=== PATIENT | male | born 2000 | race Caucasian/White ===

== ENCOUNTER 2025-05-08 13:55 | Emergency (ER) | payer OTHER ==
[2025-05-08 14:19] LABS: Glucose,Whole Blood 108 mg/dL (70-110)
--- NOTE | 2025-05-08 14:24 | ED ---
Recheck HPI - General Chief Complaint: Recheck/Abnormal Lab/Rx Stated Complaint: Hypoglycemia Time Seen by Provider: 05/08/25 14:09 Source: patient, family, EMS, RN notes reviewed Mode of arrival: EMS Limitations: no limitations - History of Present Illness Initial Comments: This is a 24-year-old male with a history of type 1 diabetes not on an insulin pump presenting to the emergency department via EMS for concerns of hypoglycemia. Mother is at bedside and helps to provide history as well. Patient states that he went to bed at 5 AM this morning and mother states that she went to check on the patient at 12:30 PM and he was difficult to arouse. She checked his blood sugar that was in the 20s. She gave the patient frosting where he mildly woke up and EMS said that his sugars were in the 40s. Patient states that he last had a meal at about 2300 on 05/07/2025. Currently states that he is feeling nauseated. Denies chest pain, headaches, abdominal pain, difficulty in breathing. Has not received insulin today. - Related Data Home Medications Medication Instructions Recorded Confirmed Insulin Aspart [Insulin Aspart See Protocol SQ TID-W/MEALS 05/08/25 05/08/25 Flexpen] Insulin Glargine,Hum.rec.anlog 28 units SQ HS 05/08/25 05/08/25 [Lantus Solostar Pen] Allergies Allergy/AdvReac Type Severity Reaction Status Date / Time No Known Allergies Allergy Verified 05/08/25 15:13 Review of Systems ROS Statement: Those systems with pertinent positive or pertinent negative responses have been documented in the HPI. ROS Other: All systems not noted in ROS Statement are negative. Past Medical History Past Medical History: Diabetes Mellitus History of Any Multi-Drug Resistant Organisms: None Reported Past Surgical History: No Surgical Hx Reported Past Psychological History: No Psychological Hx Reported Smoking Status: Never smoker Past Alcohol Use History: Occasional Past Drug Use History: Marijuana General Exam Limitations: no limitations Neck exam: Present: normal inspection. Absent: tenderness, meningismus, lymphad enopathy Respiratory exam: Present: normal lung sounds bilaterally. Absent: respiratory distress, wheezes, rales, rhonchi, stridor Cardiovascular Exam: Present: regular rate, normal rhythm, normal heart sounds. Absent: systolic murmur, diastolic murmur, rubs, gallop, clicks GI/Abdominal exam: Present: soft, normal bowel sounds. Absent: distended, tenderness, guarding, rebound, rigid Extremities exam: Present: normal inspection, full ROM, normal capillary refill. Absent: tenderness, pedal edema, joint swelling, calf tenderness Back exam: Present: normal inspection Skin exam: Present: warm, dry, intact, normal color. Absent: rash Course Vital Signs 05/08/25 05/08/25 05/08/25 13:58 14:52 15:51 Temperature 97.7 F Pulse Rate 85 86 67 Respiratory 20 20 20 Rate Blood Pressure 137/87 137/86 116/72 O2 Sat by Pulse 99 99 96 Oximetry Medical Decision Making - Medical Decision Making Was pt. sent in by a medical professional or institution (, PA, SYSTEMS SECURITY CONSULTANT, urgent care, hospital, or [facility]...) When possible be specific @ -[No] Did you speak to anyone other than the patient for history (EMS, parent, family, police, friend...)? What history was obtained from this source @ -Mother states that she noticed the patient was not responding when she checked his blood sugar that was found to be in the 20s. Did you review nursing and triage notes (agree or disagree)? Why? @ -[I reviewed and agree with nursing and triage notes] Were old charts reviewed (outside hosp., previous admission, EMS record, old EKG, old radiological studies, urgent care reports/EKG's, [facility] records)? Report findings @ -[No old charts were reviewed] Differential Diagnosis (chest pain, altered mental status, abdominal pain women, abdominal pain men, vaginal bleeding, weakness, fever, dyspnea, syncope, headache, dizziness, GI bleed, back pain, seizure, CVA, palpatations, mental health, musculoskeletal)? @ -Differential Altered Mental Status: Hypoglycemia, DKA, hypercapnia, ETOH, overdose, CO poisoning, trauma, myxedema coma, HTN encephalopathy, infection, encephalitis, psychosis, intercranial hemorrhage, hepatic encephalopathy, meningitis, CVA, this is not meant to be an all-inclusive list EKG interpreted by me (3pts min.). @ -[As above] X-rays interpreted by me (1pt min.). @ -[None done] CT interpreted by me (1pt min.). @ -[None done] U/S interpreted by me (1pt. min.). @ -[None done] What testing was considered but not performed or refused? (CT, X-rays, U/S, labs)? Why? @ -[None] What meds were considered but not given or refused? Why? @ -[None] Did you discuss the management of the patient with other professionals (professionals i.e. , PA, SYSTEMS SECURITY CONSULTANT, lab, RT, psych nurse, social media intern, mud trucker, teacher, hospital chief financial officer, case coordinator)? Give summary @ -[No] Was smoking cessation discussed for >3mins.? @ -[No] Was critical care preformed (if so, how long)? @ -[No] Were there social determinants of health that impacted care today? How? (Homelessness, low income, unemployed, alcoholism, drug addiction, transpor tation, low edu. Level, literacy, decrease access to med. care, care home, rehab)? @ -[No] Was there de-escalation of care discussed even if they declined (Discuss DNR or withdrawal of care, Hospice)? DNR status @ -[No] What co-morbidities impacted this encounter? (DM, HTN, Smoking, COPD, CAD, Cancer, CVA, ARF, Chemo, Hep., AIDS, mental health diagnosis, sleep apnea, morbid obesity)? @ -[None] Was patient admitted / discharged? Hospital course, mention meds given and route, prescriptions, significant lab abnormalities, going to OR and other pertinent info. @ -24-year-old male presenting via EMS with hypoglycemia. On arrival patient's blood sugar is noted to be 108 at 2:08 PM. On my evaluation of the patient he is resting comfortably in the examination bed however he appears mildly pale. States that he is nauseated. Abdominal examination is unremarkable. Patient is ANO x 4. He is provided with apple juice. Patient's repeat blood glucose after juice and a sandwich is at 54. He is provided with a half amp of dextrose with a repeat sugar of 96. repat BG Of patient is stable for discharge and recommended that he continue to closely monitor his sugar at home and follow up with his primary care provider on Saturday for further evaluation. case discussed with my attending, Dr. Lamb Undiagnosed new problem with uncertain prognosis? @ -[No] Drug Therapy requiring intensive monitoring for toxicity (Heparin, Nitro, Insulin, Cardizem)? @ -[No] Were any procedures done? @ -[No] Diagnosis/symptom? @ -[default] Acute, or Chronic, or Acute on Chronic? @ -[default] Uncomplicated (without systemic symptoms) or Complicated (systemic symptoms)? @ -[default] Side effects of treatment? @ -[No] Exacerbation, Progression, or Severe Exacerbation? @ -[No] Poses a threat to life or bodily function? How? (Chest pain, [place], NH, pneumonia, PE, COPD, DKA, ARF, appy, cholecystitis, CVA, Diverticulitis, Homicidal, Suicidal, threat to staff... and all critical care pts) @ -[No] - Lab Data Result diagrams: 05/08/25 14:51 05/08/25 14:51 Lab Results 05/08/25 05/08/25 05/08/25 Range/Units 14:08 14:51 14:51 WBC 8.14 (4.50-10.00) 10*3/uL RBC 4.70 (4.40-5.60) 10*6/uL Hgb 15.0 (13.0-17.0) g/dL Hct 41.2 (39.6-50.0) % MCV 87.7 (80.0-97.0) fL MCH 31.9 (27.0-32.0) pg MCHC 36.4 (32.0-37.0) g/dL Plt Count 246 (140-440) 10*3/uL MPV 11.4 (9.5-12.2) fL Immature Gran % (Auto) 0.4 % Neutrophils % 88.4 % Lymphocytes % 7.2 % Monocytes % 3.9 % Eosinophils % 0.0 % Basophils % 0.1 % Immature Gran # 0.03 (0.00-0.04) 10*3/uL Neutrophils # 7.19 (1.80-7.70) 10*3/uL Lymphocytes # 0.59 L (0.90-5.00) 10*3/uL Monocytes # 0.32 (0.20-1.00) 10*3/uL Eosinophils # 0.00 L (0.04-0.35) 10*3/uL Basophils # 0.01 (0.00-0.10) 10*3/uL Sodium 143 (137-145) mmol/L Potassium 4.1 (3.5-5.1) mmol/L Chloride 104 (98-107) mmol/L Carbon Dioxide 26 (22-30) mmol/L Anion Gap 13 mmol/L BUN 15 (9-20) mg/dL Creatinine 0.56 L (0.66-1.25) mg/dL Est GFR (CKD-EPI)AfAm >90 (>60 ml/min/1.73 sqM) Est GFR (CKD-EPI)NonAf >90 (>60 ml/min/1.73 sqM) Glucose 44 L* (74-99) mg/dL POC Glucose (mg/dL) 108 (70-110) mg/dL POC Glu [employer] Developer ID Wong Narayan Calcium 9.1 (8.4-10.2) mg/dL Magnesium 2.0 (1.6-2.3) mg/dL Total Bilirubin 0.6 (0.2-1.3) mg/dL AST 50 (17-59) U/L ALT 44 (4-49) U/L Alkaline Phosphatase 74 (38-126) U/L Total Protein 7.2 (6.3-8.2) g/dL Albumin 4.8 (3.5-5.0) g/dL 05/08/25 05/08/25 Range/Units 15:14 15:53 WBC (4.50-10.00) 10*3/uL RBC (4.40-5.60) 10*6/uL Hgb (13.0-17.0) g/dL Hct (39.6-50.0) % MCV (80.0-97.0) fL MCH (27.0-32.0) pg MCHC (32.0-37.0) g/dL Plt Count (140-440) 10*3/uL MPV (9.5-12.2) fL Immature Gran % (Auto) % Neutrophils % % Lymphocytes % % Monocytes % % Eosinophils % % Basophils % % Immature Gran # (0.00-0.04) 10*3/uL Neutrophils # (1.80-7.70) 10*3/uL Lymphocytes # (0.90-5.00) 10*3/uL Monocytes # (0.20-1.00) 10*3/uL Eosinophils # (0.04-0.35) 10*3/uL Basophils # (0.00-0.10) 10*3/uL Sodium (137-145) mmol/L Potassium (3.5-5.1) mmol/L Chloride (98-107) mmol/L Carbon Dioxide (22-30) mmol/L Anion Gap mmol/L BUN (9-20) mg/dL Creatinine (0.66-1.25) mg/dL Est GFR (CKD-EPI)AfAm (>60 ml/min/1.73 sqM) Est GFR (CKD-EPI)NonAf (>60 ml/min/1.73 sqM) Glucose (74-99) mg/dL POC Glucose (mg/dL) 54 L 96 (70-110) mg/dL POC Glu [employer] Developer ID Albert Busch Calcium (8.4-10.2) mg/dL Magnesium (1.6-2.3) mg/dL Total Bilirubin (0.2-1.3) mg/dL AST (17-59) U/L ALT (4-49) U/L Alkaline Phosphatase (38-126) U/L Total Protein (6.3-8.2) g/dL Albumin (3.5-5.0) g/dL Disposition Clinical Impression: Hypoglycemia due to type 1 diabetes mellitus Disposition: HOME SELF-CARE Condition: Stable Instructions (If sedation given, give patient instructions): Hypoglycemia in a Person with Diabetes (DC) Additional Instructions: Please return to the Emergency Department if symptoms worsen or any other concerns. Please follow-up on Saturday with your primary care doctor. Continue to closely monitor your blood glucose levels. Is patient prescribed a controlled substance at d/c from ED?: No Referrals: Jason Lind MD [Primary Care Provider] - 1-2 days
[2025-05-08] MEDS: METOCLOPRAMIDE 5 MG/ML 2 ML VIAL IVP STA (14:57)
[2025-05-08 15:14] LABS: Basophils # (A) 0.01 10*3/uL (0.00-0.10); Basophils % (A) 0.1 %; Eosinophils # (A) 0.00 10*3/uL (0.04-0.35); Eosinophils % (A) 0.0 %; HCT 41.2 % (39.6-50.0); HGB 15.0 g/dL (13.0-17.0); Lymphocytes # (A) 0.59 10*3/uL (0.90-5.00); Lymphocytes % (A) 7.2 %; MCH 31.9 pg (27.0-32.0); MCHC 36.4 g/dL (32.0-37.0); MCV 87.7 fL (80.0-97.0); Monocytes # (A) 0.32 10*3/uL (0.20-1.00); Monocytes % (A) 3.9 %; Neutrophils # (A) 7.19 10*3/uL (1.80-7.70); Neutrophils % (A) 88.4 %; Platelet Count 246 10*3/uL (140-440); RBC 4.70 10*6/uL (4.40-5.60); RDW 12.4 % (11.5-14.5); WBC 8.14 10*3/uL (4.50-10.00)
[2025-05-08 15:16] LABS: Glucose,Whole Blood 54 mg/dL (70-110)
[2025-05-08] MEDS: DEXTROSE 50% SYRINGE 50 ML IVP STA (15:28)
[2025-05-08 15:39] LABS: ALT 44 U/L (4-49); AST 50 U/L (17-59); African American GFR (CKD) >90 (>60 ml/min/1.73 sqM); Albumin 4.8 g/dL (3.5-5.0); Alkaline Phosphatase 74 U/L (38-126); Anion Gap 13 mmol/L; Blood Urea Nitrogen 15 mg/dL (9-20); Calcium 9.1 mg/dL (8.4-10.2); Carbon Dioxide 26 mmol/L (22-30); Chloride 104 mmol/L (98-107); Magnesium 2.0 mg/dL (1.6-2.3); Non-African American GFR(CKD) >90 (>60 ml/min/1.73 sqM); Potassium 4.1 mmol/L (3.5-5.1); Sodium 143 mmol/L (137-145); Total Protein 7.2 g/dL (6.3-8.2)
[2025-05-08 15:55] LABS: Glucose,Whole Blood 96 mg/dL (70-110)
[2025-05-08 16:03] LABS: Glucose 44 mg/dL (74-99)
[2025-05-08 16:59] LABS: Glucose,Whole Blood 80 mg/dL (70-110)
[2025-05-08 17:56] LABS: Glucose,Whole Blood 50 mg/dL (70-110)
[2025-05-08 17:59] VITALS: RESP 18
[2025-05-08 18:23] LABS: Glucose,Whole Blood 65 mg/dL (70-110)
[2025-05-08 18:48] LABS: Glucose,Whole Blood 91 mg/dL (70-110)
[2025-05-08 19:13] VITALS: BP 130/79; PULSE 89; TEMP 97.5
== END 2025-05-08 19:13 | disposition home or self-care (01) ==
LOC: EC 13:55
DX: E10.649 Type 1 diabetes mellitus with hypoglycemia without coma (principal); Z79.4 Long term (current) use of insulin
CPT/HCPCS: 36415; 80053; 83735; 85025; 99285; 96374; 96375; J2765